=== PATIENT | female | born 1985 | race Caucasian/White ===

== ENCOUNTER 2016-10-02 05:08 | Inpatient (IN) | payer BC ==
[2016-10-02] VITALS (26 sets, daily range): BP systolic 95–151; BP diastolic 56–85; PULSE 55–102; TEMP 97.5–98.4
[~2016-10-02] VITALS: Ht 160 cm; Wt 75.0 kg
[2016-10-02] MEDS ORDERED: PRENATAL PO (05:53)
[2016-10-02 05:57] LABS: HEMATOCRIT 39.2 % (37.0-47.0); HEMOGLOBIN 13.4 g/dl (12.5-16.0); MEAN CELL VOLUME 92 fl (80.0-100.0); MEAN CORPUSCULAR HEMOGLOBIN 31 pg (27.0-31.0); RED BLOOD COUNT 4.28 M/mm3 (4.10-5.30); WHITE BLOOD COUNT 7.4 K/mm3 (4.8-10.8)
[2016-10-02 05:58] LABS: BASO % 0.5 % (0.0-2.0); EOS # 0.1 (0.0-0.7); EOS % 0.8 % (0-4.0); GRAN # 4.7 (1.4-6.5); GRAN % 63.3 % (42.2-75.2); LYMPH # 1.7 (1.2-3.4); LYMPH % 22.2 % (20.0-51.0); MEAN CORPUSCULAR HGB CONC 34 g/dl (33.0-37.0); MEAN PLATELET VOLUME 11.9 fl (7.4-10.4); MONO % 12.8 % (1.7-9.3); PLATELET COUNT 127 K/mm3 (130-400); REDCELL DISTRIBUTION WIDTH-CV 12.4 % (11.5-14.5)
[2016-10-02 18:40] LABS: BASO % 0.2 % (0.0-2.0); EOS % 0.1 % (0-4.0); GRAN # 11.8 (1.4-6.5); GRAN % 85.5 % (42.2-75.2); LYMPH # 1.1 (1.2-3.4); LYMPH % 7.8 % (20.0-51.0); MEAN CELL VOLUME 92 fl (80.0-100.0); MEAN CORPUSCULAR HGB CONC 35 g/dl (33.0-37.0); MEAN PLATELET VOLUME 11.7 fl (7.4-10.4); MONO # 0.8 (0.1-0.6); MONO % 5.9 % (1.7-9.3); PLATELET COUNT 139 K/mm3 (130-400); RED BLOOD COUNT 3.02 M/mm3 (4.10-5.30); REDCELL DISTRIBUTION WIDTH-CV 12.5 % (11.5-14.5); WHITE BLOOD COUNT 13.8 K/mm3 (4.8-10.8)
[2016-10-02 18:41] LABS: HEMATOCRIT 27.8 % (37.0-47.0); HEMOGLOBIN 9.6 g/dl (12.5-16.0); MEAN CORPUSCULAR HEMOGLOBIN 32 pg (27.0-31.0)
[2016-10-03] VITALS: BP 101/63; PULSE 75; TEMP 98.1
[2016-10-03 04:00] VITALS: BP 99/61; PULSE 73; TEMP 98
[2016-10-03 07:42] LABS: BASO % 0.3 % (0.0-2.0); EOS # 0.1 (0.0-0.7); EOS % 0.4 % (0-4.0); GRAN # 9.6 (1.4-6.5); LYMPH # 1.9 (1.2-3.4); LYMPH % 14.7 % (20.0-51.0); MEAN CELL VOLUME 93 fl (80.0-100.0); MEAN CORPUSCULAR HGB CONC 34 g/dl (33.0-37.0); MEAN PLATELET VOLUME 10.8 fl (7.4-10.4); MONO # 1.1 (0.1-0.6); PLATELET COUNT 128 K/mm3 (130-400); RED BLOOD COUNT 2.43 M/mm3 (4.10-5.30); REDCELL DISTRIBUTION WIDTH-CV 12.9 % (11.5-14.5); WHITE BLOOD COUNT 12.7 K/mm3 (4.8-10.8)
[2016-10-03 07:50] LABS: HEMATOCRIT 22.6 % (37.0-47.0); HEMOGLOBIN 7.7 g/dl (12.5-16.0); MEAN CORPUSCULAR HEMOGLOBIN 32 pg (27.0-31.0)
[2016-10-03 08:21] VITALS: BP 129/84; PULSE 69; TEMP 98.2
[2016-10-03 15:08] VITALS: BP 113/68; PULSE 76; TEMP 98.2
[2016-10-03 20:03] LABS: HEMATOCRIT 22.2 % (37.0-47.0); HEMOGLOBIN 7.6 g/dl (12.5-16.0); MEAN CELL VOLUME 95 fl (80.0-100.0); MEAN CORPUSCULAR HEMOGLOBIN 32 pg (27.0-31.0); MEAN CORPUSCULAR HGB CONC 34 g/dl (33.0-37.0); PLATELET COUNT 136 K/mm3 (130-400); RED BLOOD COUNT 2.34 M/mm3 (4.10-5.30); REDCELL DISTRIBUTION WIDTH-CV 13.2 % (11.5-14.5); WHITE BLOOD COUNT 12.4 K/mm3 (4.8-10.8)
[2016-10-03 21:00] VITALS: BP 98/58; PULSE 78; TEMP 99.1
[2016-10-04 07:50] VITALS: BP 110/68; PULSE 69; TEMP 98.1
[2016-10-04] MEDS ORDERED: IBU800 M1 PO (09:22)
[2016-10-04] MEDS ORDERED: PERCOCET 325 MG1 TA2 PO (09:23)
[2016-10-04] MEDS ORDERED: FERROUS SU325 MG/TAB PO (09:23)
== END 2016-10-04 15:20 | disposition home or self-care (01) | DRG 775 ==
LOC: LDRO 05:08 → LDR 05:38 → OB 10-03 11:37 → LDRO 10-03 14:04 → OB 10-04 15:20
PROVIDERS: Obstetrics & Gynecology; Student in an Organized Health Care Education/Training Program
PROC: 10E0XZZ Delivery of Products of Conception, External Approach (ICD-10-PCS; principal; 2016-10-02)
PROC: 0KQM0ZZ Repair Perineum Muscle, Open Approach (ICD-10-PCS; 2016-10-02)
DX: O70.1 Second degree perineal laceration during delivery (principal); Z37.0 Single live birth; D62 Acute posthemorrhagic anemia; O71.89 Other specified obstetric trauma; O99.02 Anemia complicating childbirth; Z3A.39 39 weeks gestation of pregnancy
CPT/HCPCS: J1170; J2590; J7120

== ENCOUNTER 2016-10-15 17:59 | Observation (INO) | payer BC ==
[2016-10-15] VITALS (8 sets, daily range): BP systolic 103–120; BP diastolic 58–85; PULSE 55–97; TEMP 97.3–98.7
[~2016-10-15 17:59] MED LIST: FERROUS SU325 MG/TAB PO; IBU800 M1 PO; PERCOCET 325 MG1 TA2 PO; PRENATAL PO
[2016-10-15] MEDS ORDERED: AMOXICILLIN 8751 TAB PO (19:27)
[2016-10-15] MEDS ORDERED: TYLENOL 500MG500 MG PO (19:27)
[2016-10-15] MEDS ORDERED: FLAGYL500 MG PO (19:28)
[2016-10-15] MEDS ORDERED: IBU800 M1 PO (20:07)
[2016-10-15] MEDS ORDERED: PERCOCET 325 MG1 TA2 PO (20:07)
== END 2016-10-15 22:45 | disposition home or self-care (01) ==
LOC: OB 18:03
DX: O90.2 Hematoma of obstetric wound (principal); O90.81 Anemia of the puerperium; D62 Acute posthemorrhagic anemia
CPT/HCPCS: G0378; J0690; J2250; J2405; J2704; J3010

== ENCOUNTER → 2016-10-27 | Outpatient (CLI) | payer BC ==
[~2016-10-27] MED LIST changes: +AMOXICILLIN 8751 TAB PO; +FLAGYL500 MG PO; +TYLENOL 500MG500 MG PO
== END ==
LOC: LAC 13:48
DX: Z39.1 Encounter for care and examination of lactating mother (principal); Z71.89 Other specified counseling